=== PATIENT | female | born 1940 | race Caucasian/White ===

== ENCOUNTER → 2018-11-03 | Outpatient (CLI) | payer MEDICARE ==
[~2018-11-03] MED LIST: DIPH-740 PO; EPIN0.3P15 IM; FEXO180T74 PO; FLAX100042 PO; FLU60SYR30 IM ONLY; FLU60VIA41 IM; HYDR-2966 PO; HYDR12.558 PO; MULT-1335 PO; NONE NOW; PNEU0.5D3 IM; PRED20TA6 PO; VIT-9 PO; [UNRECOGNIZED DRUG - CODE] PO
--- NOTE | 2018-11-07 12:51 | RADIOLOGY IMAGING REPORT ---
FACILITY: [facility] - [place] PATIENT NAME: DAGO HORNER : [id number] MR: [id number] V: [id number] EXAM DATE: [id number] ORDERING PHYSICIAN: KYREE MILLER TECHNOLOGIST: Sidra Acevedo PROCEDURE:BILATERAL DIGITAL SCREENING MAMMOGRAM WITH CAD ASSISTED INTERPRETATION & 3D TOMOSYNTHESIS COMPARISON:[facility]. INDICATIONS:Screening FINDINGS: Scattered fibroglandular densities are present in both breasts. Right retroareolar duct ectasia is unchanged. A few benign appearing calcifications are scattered bilaterally. DIAGNOSTIC CATEGORY 1--NEGATIVE. RECOMMENDATIONS: ROUTINE MAMMOGRAM AND CLINICAL EVALUATION IN 1 YR. IMPRESSION: BIRADS 1: Negative. Dictated by: Ramon Rodriguez M.D. on 11/03/2018 at 17:02 Transcribed by: APOLONIA on 11/06/2018 at 10:07 Approved by: Triston Brunson M.D. on 11/07/2018 at 12:50 [facility]
== END ==
LOC: MAMO 01:21
PROVIDERS: ATTEND Emergency Medicine
DX: Z12.31 Encounter for screening mammogram for malignant neoplasm of breast (principal); N60.41 Mammary duct ectasia of right breast; R92.1 Mammographic calcification found on diagnostic imaging of breast
CPT/HCPCS: 77063; 77067

== ENCOUNTER 2018-11-13 14:58 | Emergency (ER) | payer MEDICARE ==
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
[2018-11-13] MEDS ORDERED: ASPIRIN 81 MG CHEW PO ONE (15:30)
[2018-11-13 15:37] LABS: PLATELET COUNT, AUTOMATED 262 K/uL (150-450)
--- NOTE | 2018-11-13 15:38 | EKG ---
[place] [facility] [place] DAGO HORNER : [id number] MR: [id number] V: [id number] EXAM DATE: ORDERING PHYSICIAN: JAKE MARION TECHNOLOGIST: ZURDO Boyd Reason : Blood Pressure : / mmHG Vent. Rate : 074 BPM Atrial Rate : 074 BPM P-R Int : 140 ms QRS Dur : 090 ms QT Int : 378 ms P-R-T Axes : 068 040 066 degrees QTc Int : 419 ms Sinus rhythm with PACs Possible left atrial enlargement No acute appearing findings Confirmed by ROSARIO DE LEON ([id number]) on 11/13/2018 4:54:49 PM Referred By: YAO Confirmed By:ROSARIO DE LEON
--- NOTE | 2018-11-13 17:27 | RADIOLOGY IMAGING REPORT ---
[facility] PATIENT NAME: Trish Randall : 1940 MR: [id number] V: [id number] EXAM DATE: ORDERING PHYSICIAN: JAKE MARION TECHNOLOGIST: [place] [facility] [place] : 1940 Visit/Account:[id number] Date of Sevice: 11/13/2018 Exam type: CHEST PA LAT History: Pain since November 05, nonsmoker Comparison: April 22, 2014. Findings: There is a small band of scarring in the medial left lower lobe. There is no evidence of acute appea ring infiltrates pleural effusions or pulmonary edema. Cardiac silhouette is normal in size. There is an S-shaped scoliosis of the thoracolumbar spine IMPRESSION: 1. Small linear band of scarring in the medial left lung base although no evidence of acute pulmonar y consolidation Report Dictated By: Terrie Rodas MD at 11/13/2018 5:21 PM Report E-Signed By: Terrie Rodas MD at 11/13/2018 5:23 PM WSN:[id number]
[2018-11-13 17:30] VITALS: BP 129/89
== END 2018-11-13 18:00 | disposition home or self-care (01) ==
LOC: ER 15:16
DX: M94.0 Chondrocostal junction syndrome [Tietze] (principal); R07.9 Chest pain, unspecified; I10 Essential (primary) hypertension; K21.9 Gastro-esophageal reflux disease without esophagitis; Z79.899 Other long term (current) drug therapy
CPT/HCPCS: 71046; 84484; 85025; 93005; 99284; A9270; 82040; 82247; 82310; 82374; 82435; 82565; 82947; 84075; 84132; 84155; 84295; 84450; 84460; 84520

== ENCOUNTER → 2019-01-10 | Outpatient (CLI) | payer MEDICARE ==
--- NOTE | 2019-01-10 17:49 | RADIOLOGY IMAGING REPORT ---
FACILITY: [facility] [place] PATIENT NAME: Trish Randall : 1940 MR: [id number] V: [id number] EXAM DATE: ORDERING PHYSICIAN: KYREE MILLER TECHNOLOGIST: Location: [facility] Patient: Trish Randall : 1940 Visit/Account:[id number] Date of Sevice: 01/10/2019 DEXA Scan Clinical history: Osteopenia. Comparison: DEXA scan from 06/03/2011. LUMBAR SPINE: The bone mineral density (BMD) measured from L1-L4 correlates with a Z-score 5.7 and a T-score of 5. 0 which is Normal as defined by the World Health Organization. The corresponding risk of fracture in the lumbar spine is Not increased compared with a young adult reference population. This value has increased by 3.3 % since the prior study. More than 5% change is considered significant. HIP: Bone mineral density (BMD) measured in the Left femoral neck region correlates with a Z-score 0.5 and a T-score of -0.8 which is Normal as defined by the World Health Organization. The corresponding risk of fracture in the hip is 1-2 times compared with a young adult reference population. The total hip value has decreased by 8.4 % since the prior study. More than 5% change is considered significan t. Bone mineral density (BMD) measured in the Femoral Neck region measures 0.992 g/cm2. IMPRESSION: 1. Lumbar spine: Normal. There has been No significant change in the bone mineral density since the previous exam. 2. Left Hip: Normal. There has been significant decrease in the bone mineral density of the total h ip since the previous exam. 3. Femoral Neck: Bone Mineral Density is 0.992 g/cm2 The next DEXA scan of this patient should include the following sites: L1-L4 and the left hip. FRAX? WHO Fracture Risk Assessment Tool link: <http://www.shef.ac.uk/FRAX/tool.jsp?locationValue=9> PLEASE NOTE: 1) The World Health Organization defines low BMD as follows: T-score Normal > -1 Osteopenia < -1 and > -2.5 Osteoporosis < -2.5 without fractures Established osteoporosis < -2.5 with fractures 2) In general, you may wish to consider: Diagnosis Treatment Follow-up DEXA Normal BMD Prevention 2-3 years Osteopenia Prevention/therapy 1-2 years Osteoporosis Therapy Yearly 3) Fracture risk estimated from the T-score is more accurate for vertebral fractures (often spontane ous) than for hip fractures. Report Dictated By: Rao Mayorga MD at 01/10/2019 5:43 PM Report E-Signed By: Rao Mayorga MD at 01/10/2019 5:45 PM WSN:[id number]
== END ==
LOC: RAD 16:15
PROVIDERS: ATTEND Emergency Medicine
DX: Z78.0 Asymptomatic menopausal state (principal)
CPT/HCPCS: 77080

== ENCOUNTER → 2019-02-26 | Outpatient (CLI) | payer MEDICARE ==
[~2019-02-26] MED LIST changes: +ROSU10TA PO
== END ==
LOC: LAB 11:33
PROVIDERS: ATTEND Emergency Medicine
DX: E78.00 Pure hypercholesterolemia, unspecified (principal)
CPT/HCPCS: 36415; 82465; 83718; 84478